=== PATIENT | female | born 1975 | race Hispanic/Latino ===

== ENCOUNTER 2021-04-09 18:04 | Emergency (ER) | payer OTHER, SELFPAY | END 2021-04-09 19:45 | disposition home or self-care (01) | LOC: NAV ERS 18:04 | DX: S06.0X0A Concussion without loss of consciousness, initial encounter (principal); S00.03XA Contusion of scalp, initial encounter; Z79.899 Other long term (current) drug therapy; W19.XXXA Unspecified fall, initial encounter | CPT/HCPCS: 70450 ==